=== PATIENT | male | born 1990 | race Caucasian/White ===

== ENCOUNTER 2016-09-21 07:30 | Day surgery (SDC) | payer OTHER ==
[2016-09-20 11:48] VITALS: BMI 27.9
[2016-09-21] MEDS ORDERED: LIDOCAINE HCL 2% (20ML MULTI-DOSE VIAL) NR ONE (09:20)
[2016-09-21] MEDS ORDERED: BUPIVACAINE HCL/PF 0.5% (5MG/ML) 10 ML VIAL ONE (09:20)
[2016-09-21] MEDS ORDERED: BUPIVACAINE HCL 0.25% 125 MG/50 ML VIAL ONE (09:20)
[2016-09-21] MEDS ORDERED: PROPOFOL 20 ML ONE ×2 (09:23→09:56)
[2016-09-21] MEDS ORDERED: MIDAZOLAM HCL 2 MG/2 ML SINGLE DOSE VIAL ONE (09:23)
[2016-09-21] MEDS ORDERED: ceFAZolin SODIUM 1 GM VIAL IVPB ONE (09:50)
[2016-09-21] MEDS ORDERED: ceFAZolin SODIUM 1 GM VIAL ONE (09:55)
[2016-09-21] MEDS ORDERED: GLYCOPYRROLATE 0.2 MG/1 ML VIAL ONE (10:01)
[2016-09-21] MEDS ORDERED: KETOROLAC TROMETHAMINE 30 MG/1 ML VIAL ONE (10:01)
[2016-09-21] MEDS ORDERED: ONDANSETRON 4 MG/2 ML VIAL ONE (11:01)
[2016-09-21] MEDS ORDERED: PROMETHAZINE HCL 25 MG/1 ML VIAL IVPUSH PRN (11:15)
[2016-09-21] MEDS ORDERED: ONDANSETRON 4 MG/2 ML VIAL IVPUSH PRN (11:15)
[2016-09-21] MEDS ORDERED: LACTATED RINGERS SOLUTION 1,000 ML IV SCH (11:15)
[2016-09-21 12:14] VITALS: BP 129/78; PULSE 70; TEMP 98.1
--- NOTE | 2016-09-25 15:25 | OP ---
DATE OF OPERATION: 09/21/2016 PREOPERATIVE DIAGNOSIS: Middle phalanx fracture with subluxation, left ring finger middle phalanx/proximal interphalangeal joint. POSTOPERATIVE DIAGNOSIS: Middle phalanx fracture with subluxation, left ring finger middle phalanx/proximal interphalangeal joint. PROCEDURE PERFORMED: Open reduction and internal fixation of middle phalanx fracture with pinning and reduction of proximal interphalangeal joint. SURGEON: Loy Rowe MD ENGINEER SERGEANT: LAN Goldstein FINDINGS: Anterior subluxation with dorsal fracture at the PIP joint of the middle phalanx. DESCRIPTION PROCEDURE: Informed consent was obtained. The patient was taken to the operating room, where the left upper extremity was prepped and draped in a sterile fashion. A tourniquet was placed on the upper arm and inflated to 250 mmHg. An incision was made along the dorsal surface of the middle phalanx, including the PIP joint. The extensor holden and tendon were incised centrally. The dorsal fragment was found to be caught in the soft tissue, and this was freed and then secured using soft tissue closure. Prior to this, the PIP joint was identified and cleared of all loose debris. A reduction pin was then placed across the PIP joint and confirmed with C-arm fluoroscopy. 5-0 nylon was then used along the extensor holden to allow for repair, and a layered closure of 3-0 Vicryl and 4-0 nylon were placed across the finger. A sterile dressing and splint were placed. The patient was transferred to the recovery room without complication. Darleen [id number]
== END 2016-09-21 12:25 | disposition home or self-care (01) ==
LOC: FASU 07:30
PROVIDERS: ATTEND Orthopaedic Surgery
PROC: 0PSV0ZZ Reposition Left Finger Phalanx, Open Approach (ICD-10-PCS; 2016-09-21)
PROC: 0PSV04Z Reposition Left Finger Phalanx with Internal Fixation Device, Open Approach (ICD-10-PCS; principal; 2016-09-21 09:00)
DX: S62.625A Displaced fracture of middle phalanx of left ring finger, initial encounter for closed fracture (principal); S63.235A Subluxation of proximal interphalangeal joint of left ring finger, initial encounter; X58.XXXA Exposure to other specified factors, initial encounter; Y93.9 Activity, unspecified; Y92.9 Unspecified place or not applicable
CPT/HCPCS: 73130-TC-LT; 76000-TC; 94760